=== PATIENT | male | born 1940 | race Caucasian/White ===

== ENCOUNTER 2017-09-26 20:25 | Inpatient (IN) | payer OTHER ==
[~2017-09-26] VITALS: Ht 170.2 cm; Wt 64.5 kg
[~2017-09-26 20:25] MED LIST: KEFLEX500 MG PO; PERCOCET 5/31 TABLET PO
[2017-09-26 20:49] LABS: HEMATOCRIT 36.1 % (38.0-50.0); MCH 27.9 PG (29.0-34.0); MCHC 32.1 G/DL (30.0-36.0); MCV 86.8 FL (86-99); MEAN PLAT.VOLUME 9.2 uM^3 (9.0-12.4); PLATELET COUNT 393 K/uL (156-360); RBC DIS.WIDTH-CV 14.5 % (11.8-14.6); RBC DIS.WIDTH-SD 46.5 % (39-53); RED BLOOD COUNT 4.16 M/uL (4.00-5.50); WHITE BLOOD COUNT 12.4 K/uL (4.1-10.2)
[2017-09-26 20:57] LABS: CHLORIDE 102 mEq/L (99-109); POTASSIUM 4.4 mEq/L (3.7-5.4); SODIUM 137 mEq/L (136-147)
[2017-09-26 20:59] LABS: GLUCOSE 122 mg/dL (70-99)
[2017-09-26 21:00] LABS: ANION GAP 7 MEQ/L (2-14)
[2017-09-26 21:02] LABS: GFR ESTIMATE (CALCULATED) 57 mL/min/
[2017-09-26 21:03] LABS: UREA NITROGEN (BUN) 29 mg/dL (9-23)
[2017-09-26 21:09] LABS: TROP-I INTERPRETATION NEGATIVE; TROPONIN-I 0.03 ng/mL (0.0-0.30)
[2017-09-26 21:29] LABS: BASOPHIL COUNT 0.1 K/uL (0-0.1); EOSINOPHIL (%) 13.1 % (0-5); EOSINOPHIL COUNT 1.6 K/uL (0-0.3); IMMATURE GRANULOCYTE (%) 0.3 % (0.0-0.7); INSTRUMENT ABS NEUTROPHIL CT 8.3 K/uL; LYMPHOCYTE COUNT 1.1 K/uL (1.0-2.8); MONOCYTE (%) 9.9 % (3-12); MONOCYTE COUNT 1.2 K/uL (0-0.8); NEUTROPHIL COUNT 8.3 K/uL (1.8-6.4)
[2017-09-26] MEDS ORDERED: ALPRAZOLAM0.5 MG PO (21:51)
[2017-09-26] MEDS ORDERED: IRON325 M1 PO (21:51)
[2017-09-26] MEDS ORDERED: FINASTERIDE5 MG PO (21:52)
[2017-09-26] MEDS ORDERED: PERCOCET 10/1 TABLET PO (21:52)
[2017-09-26] MEDS ORDERED: CLOTRIMAZOLE15 GM TP (21:52)
[2017-09-26] MEDS ORDERED: OXYCONTIN10 MG PO (21:52)
[2017-09-26] MEDS ORDERED: FLOMAX0.4 MG PO (21:52)
[2017-09-26] MEDS ORDERED: ASPIR 8181 M1 PO (21:52)
[2017-09-26] MEDS ORDERED: VENTOLIN HFA18 GM IH (21:52)
[2017-09-26] MEDS ORDERED: GABAPENTIN300 MG PO (21:52)
[2017-09-26] MEDS ORDERED: AMLODIPINE BESYL5 MG PO (21:53)
[2017-09-26] MEDS ORDERED: SIMVASTATIN20 MG PO (21:53)
[2017-09-26] MEDS ORDERED: LISINOPRIL10 MG PO (21:53)
[2017-09-27] VITALS (7 sets, daily range): BP systolic 124–157; BP diastolic 60–74
[2017-09-27 02:24] LABS: ADD MIUA? NO; BILIRUBIN NEGATIVE; BLOOD NEGATIVE; COLOR YELLOW ((YELLOW)); GLUCOSE (STRIP) NEGATIVE; KETONES NEGATIVE; LEUKOCYTES NEGATIVE; NITRITE NEGATIVE; PROTEIN (STRIP) NEGATIVE; SPECIFIC GRAVITY 1.021 (1.000-1.030); UCUL ADDED? NO; UROBILINOGEN 0.2 MG/DL (0.2-1.0)
[2017-09-27 06:21] LABS: TROP-I INTERPRETATION NEGATIVE; TROPONIN-I 0.04 ng/mL (0.0-0.30)
[2017-09-27 08:48] LABS: INTERNAL CONTROL VALID? YES
[2017-09-27 11:56] LABS: HEMATOCRIT 37.9 % (38.0-50.0); MCH 27.4 PG (29.0-34.0); MCHC 31.7 G/DL (30.0-36.0); MCV 86.5 FL (86-99); MEAN PLAT.VOLUME 9.2 uM^3 (9.0-12.4); PLATELET COUNT 400 K/uL (156-360); RBC DIS.WIDTH-CV 14.2 % (11.8-14.6); RBC DIS.WIDTH-SD 45.7 % (39-53); RED BLOOD COUNT 4.38 M/uL (4.00-5.50); WHITE BLOOD COUNT 6.3 K/uL (4.1-10.2)
[2017-09-27 12:15] LABS: TROP-I INTERPRETATION NEGATIVE; TROPONIN-I 0.02 ng/mL (0.0-0.30)
[2017-09-28] VITALS (7 sets, daily range): BP systolic 109–146; BP diastolic 56–65
[2017-09-28 05:58] LABS: EOSINOPHIL (%) 0 % (0-5); HEMATOCRIT 38.8 % (38.0-50.0); IMMATURE GRANULOCYTE (%) 0.5 % (0.0-0.7); IMMATURE GRANULOCYTE COUNT 0.1 K/uL; INSTRUMENT ABS NEUTROPHIL CT 13.2 K/uL; LYMPHOCYTE COUNT 1.4 K/uL (1.0-2.8); MCH 28.2 PG (29.0-34.0); MCHC 32.7 G/DL (30.0-36.0); MEAN PLAT.VOLUME 9.5 uM^3 (9.0-12.4); MONOCYTE (%) 6.3 % (3-12); NEUTROPHIL COUNT 13.2 K/uL (1.8-6.4); PLATELET COUNT 436 K/uL (156-360); RBC DIS.WIDTH-CV 14.5 % (11.8-14.6); RBC DIS.WIDTH-SD 45.6 % (39-53); RED BLOOD COUNT 4.51 M/uL (4.00-5.50); WHITE BLOOD COUNT 15.7 K/uL (4.1-10.2)
[2017-09-28 06:27] LABS: ANION GAP 7 MEQ/L (2-14); CHLORIDE 100 MEQ/L (99-109); GFR ESTIMATE (CALCULATED) > 59 mL/min/; GLUCOSE 151 mg/dL (70-99); HDL CHOLESTEROL 35 MG/DL (Desirable>=40); LDL CHOLESTEROL 59 mg/dL (Desirable<100); NON-HDL CHOLESTEROL 79 mg/dL (Desirable<160); POTASSIUM 4.4 MEQ/L (3.7-5.4); SAMPLE HEMOLYSIS CHECK 0; SAMPLE ICTERIC CHECK 0; SAMPLE LIPEMIA CHECK 0; SODIUM 135 MEQ/L (136-147); TOTAL CHOLESTEROL 114 mg/dL (Desirable<200); TRIGLYCERIDES 102 MG/DL (Normal: <150); UREA NITROGEN (BUN) 36 mg/dL (9-23)
[2017-09-29 04:25] VITALS: BP 122/58
[2017-09-29 06:18] LABS: EOSINOPHIL (%) 0 % (0-5); HEMATOCRIT 40.2 % (38.0-50.0); IMMATURE GRANULOCYTE (%) 0.3 % (0.0-0.7); INSTRUMENT ABS NEUTROPHIL CT 8.5 K/uL; LYMPHOCYTE COUNT 2.2 K/uL (1.0-2.8); MCH 27.9 PG (29.0-34.0); MCHC 32.1 G/DL (30.0-36.0); MONOCYTE (%) 7.7 % (3-12); MONOCYTE COUNT 0.9 K/uL (0-0.8); NEUTROPHIL (%) 72.7 % (45-76); NEUTROPHIL COUNT 8.5 K/uL (1.8-6.4); PLATELET COUNT 431 K/uL (156-360); RBC DIS.WIDTH-CV 14.4 % (11.8-14.6); RED BLOOD COUNT 4.62 M/uL (4.00-5.50); WHITE BLOOD COUNT 11.6 K/uL (4.1-10.2)
[2017-09-29 06:47] LABS: ANION GAP 7 MEQ/L (2-14); CHLORIDE 99 MEQ/L (99-109); GFR ESTIMATE (CALCULATED) > 59 mL/min/; GLUCOSE 119 mg/dL (70-99); POTASSIUM 4.4 MEQ/L (3.7-5.4); SAMPLE HEMOLYSIS CHECK 0; SAMPLE ICTERIC CHECK 0; SAMPLE LIPEMIA CHECK 0; SODIUM 136 MEQ/L (136-147); UREA NITROGEN (BUN) 36 mg/dL (9-23)
[2017-09-29 08:22] VITALS: BP 162/70
[2017-09-29 11:43] VITALS: BP 140/68
[2017-09-29 11:45] VITALS: BP 116/55
[2017-09-29 16:07] VITALS: BP 120/55
[2017-09-29 19:20] VITALS: BP 133/59; BP 133/75
[2017-09-30 03:49] VITALS: BP 147/67
[2017-09-30 06:37] LABS: ANION GAP 5 MEQ/L (2-14); CHLORIDE 100 MEQ/L (99-109); GFR ESTIMATE (CALCULATED) > 59 mL/min/; GLUCOSE 96 mg/dL (70-99); POTASSIUM 4.5 MEQ/L (3.7-5.4); SAMPLE HEMOLYSIS CHECK 0; SAMPLE ICTERIC CHECK 0; SAMPLE LIPEMIA CHECK 0; SODIUM 137 MEQ/L (136-147); UREA NITROGEN (BUN) 38 mg/dL (9-23)
[2017-09-30 08:21] VITALS: BP 171/74
[2017-09-30] MEDS ORDERED: LISINOPRIL20 MG PO (11:36)
[2017-09-30] MEDS ORDERED: DUONEB 2.5-0.5 M3 ML AEROSOL (11:36)
[2017-09-30] MEDS ORDERED: LASIX20 MG PO (11:36)
[2017-09-30] MEDS ORDERED: SPIRIVA18 MCG IH (11:38)
[2017-09-30] MEDS ORDERED: DELTASONE20 M1 PO (11:39)
[2017-09-30] MEDS ORDERED: NICODERM CQ1 EAC2 TD (13:25)
[2017-09-30] MEDS ORDERED: NEBULIZER MC (14:58)
== END 2017-09-30 16:31 | disposition home or self-care (01) | DRG 190 ==
LOC: EME → EDBD 20:25 → EME 20:25 → 5EAST 09-27 01:18 → EDOF 09-27 01:18 → ENRESERV 09-27 01:19 → 5EAST 09-27 02:32 → ENPENDDIS 09-30 → 5EAST 09-30 16:31
PROVIDERS: Hospitalist; Internal Medicine; Nurse Practitioner Adult Health
DX: J44.0 Chronic obstructive pulmonary disease with (acute) lower respiratory infection (principal); J18.1 Lobar pneumonia, unspecified organism; J96.01 Acute respiratory failure with hypoxia; I50.33 Acute on chronic diastolic (congestive) heart failure; J81.0 Acute pulmonary edema; J90 Pleural effusion, not elsewhere classified; J44.1 Chronic obstructive pulmonary disease with (acute) exacerbation; J84.10 Pulmonary fibrosis, unspecified; N40.0 Benign prostatic hyperplasia without lower urinary tract symptoms; I11.0 Hypertensive heart disease with heart failure; E78.00 Pure hypercholesterolemia, unspecified; F17.210 Nicotine dependence, cigarettes, uncomplicated; F41.9 Anxiety disorder, unspecified; G89.29 Other chronic pain; D50.9 Iron deficiency anemia, unspecified; I44.0 Atrioventricular block, first degree; I73.9 Peripheral vascular disease, unspecified; Z79.82 Long term (current) use of aspirin; Z80.1 Family history of malignant neoplasm of trachea, bronchus and lung
CPT/HCPCS: 71020; 71250; 80048; 80061; 81003; 83605; 83880; 84484; 85025; 85027; 87040; 87070; 87205; 87449; 93005; 93306; 93970; 94640; 94640 76; 94799; 99202; 99281; 99285; J0456; J0696; J1644; J1940; J2930; J7050; J7512